=== PATIENT | female | born 1955 | race Caucasian/White ===

== ENCOUNTER 2017-09-18 14:09 | Emergency (ER) | payer OTHER ==
[2017-09-18 14:44] LABS: #Basophils 0.1 thou/uL (0.0-0.2); #Eosinphils 0.2 thou/uL (0.0-0.7); #Lymphocytes 2.6 thou/uL (1.20-3.40); #Monocytes 0.5 thou/uL (0.11-0.59); #Neutrophils 4.9 thou/uL (1.40-6.50); %Basophils 1.2 % (0.0-1.0); %Lymphocytes 31.3 % (21.0-51.0); %Monocytes 5.5 % (0.0-10.0); %Neutrophils 59.1 % (42.0-75.0); Hemoglobin 14.2 g/dL (12.0-16.0); Mean Corpuscular HGB CONC 35.5 g/dL (32.0-36.0); Mean Corpuscular Hemoglobin 29.5 pg (27.0-31.0); Mean Corpuscular Volume 83.2 fL (78.0-98.0); Mean Platelet Volume 6.9 fL (7.4-10.4); Platelet Count 180 thou/uL (130-400); RBC Distribution Width 12.2 % (11.5-14.5); Red Blood Cell (RBC) Count 4.82 mill/uL (4.20-5.40); White Blood Cell (WBC) Count 8.3 thou/uL (4.8-10.8)
[2017-09-18 15:02] LABS: CKMB 1.4 ng/mL (0-6.6); Troponin I Less than 0.010 ng/mL (< 0.028)
[2017-09-18 15:03] LABS: ALT (SGPT) 79 U/L (8-55); AST (SGOT) 90 U/L (5-34); Albumin 4.1 g/dL (3.4-4.8); Alkaline Phosphatase 61 U/L (40-150); Anion Gap 14 mmol/L (10-20); BUN (Urea Nitrogen) 10 mg/dL (9.8-20.1); Bilirubin, Total 0.6 mg/dL (0.2-1.2); Calc. Creatinine Clearance 0 mL/min (70-130); Calcium 10.6 mg/dL (7.8-10.44); Carbon Dioxide 21 mmol/L (23-31); Chloride 109 mmol/L (98-107); Estimated GFR-MDRD 89; Globulin 3.1 g/dL (2.4-3.5); Glucose 126 mg/dL (80-115); Potassium 3.8 mmol/L (3.5-5.1); Protein, Total 7.2 g/dL (6.0-8.3); Sodium 140 mmol/L (136-145)
--- NOTE | 2017-09-18 19:49 | RAD ---
PORTABLE CHEST: 09/18/17 An AP portable film at 1410 is compared with a 05/20/14 study. The heart is normal in size. There is no vascular congestion, edema, or pleural effusion. Median ster notomy sutures are seen from prior surgery. Some lingular scarring is suggested. No acute infiltrate was seen. IMPRESSION: No acute thoracic finding. POS: HOME
== END 2017-09-18 15:31 | disposition home or self-care (01) ==
LOC: BURERS 14:09
DX: R00.2 Palpitations (principal); E11.9 Type 2 diabetes mellitus without complications; I25.10 Atherosclerotic heart disease of native coronary artery without angina pectoris; E78.5 Hyperlipidemia, unspecified; I10 Essential (primary) hypertension; Z87.891 Personal history of nicotine dependence; Z79.899 Other long term (current) drug therapy; Z79.84 Long term (current) use of oral hypoglycemic drugs
CPT/HCPCS: 71045; 80053; 82553; 84484; 85025

== ENCOUNTER 2018-09-09 08:51 | Emergency (ER) | payer OTHER ==
--- NOTE | 2018-09-09 22:01 | RAD ---
LEFT KNEE FOUR VIEWS: 09/09/18 Comparison is made with a 07/27/08 study that is preoperative. A knee arthroplasty is in place. The tibial component appears normal. There is a little bit of lucenc y around the femoral component, particularly around the medial femoral condyle, but this does not carlos ear recent. The overall positioning of the hardware is normal. There is no clear evidence of acute da mage here. The oblique view shows a small bony density just lateral to the lateral femoral condyle an d located posteriorly. This could relate to the prior surgery or trauma. I doubt that it is acute an d in talking with the ER physician, there is no tenderness in that location. Any joint fluid present is relatively small. IMPRESSION: Some probably chronic changes but no definite acute finding. POS: HOME
== END 2018-09-09 10:15 | disposition home or self-care (01) ==
LOC: BURERS 08:51
DX: S80.02XA Contusion of left knee, initial encounter (principal); I25.10 Atherosclerotic heart disease of native coronary artery without angina pectoris; E11.9 Type 2 diabetes mellitus without complications; E78.5 Hyperlipidemia, unspecified; I10 Essential (primary) hypertension; F32.9 Major depressive disorder, single episode, unspecified; Z79.84 Long term (current) use of oral hypoglycemic drugs; Z79.899 Other long term (current) drug therapy; W01.0XXA Fall on same level from slipping, tripping and stumbling without subsequent striking against object, initial encounter

== ENCOUNTER 2022-02-21 09:43 | Outpatient (CLI) | payer MEDICARE, BC | END 2022-02-21 09:44 | disposition home or self-care (01) | LOC: BURRAD 09:43 | PROVIDERS: ATTEND Family Medicine | DX: R05.1 Acute cough (principal) | CPT/HCPCS: 71046 ==

== ENCOUNTER 2022-06-22 23:35 | Emergency (ER) | payer MEDICARE, BC | END 2022-06-23 00:12 | disposition home or self-care (01) | LOC: BURERS 23:35 | DX: R00.2 Palpitations (principal); I25.10 Atherosclerotic heart disease of native coronary artery without angina pectoris; E11.9 Type 2 diabetes mellitus without complications; E78.00 Pure hypercholesterolemia, unspecified; I10 Essential (primary) hypertension | CPT/HCPCS: 99284 ==